=== PATIENT | female | born 1990 | race Caucasian/White ===

== ENCOUNTER 2024-04-05 15:30 | Day surgery (SDC) | payer BC, SELFPAY ==
[2024-04-05] VITALS (10 sets, daily range): BP systolic 100–131; BP diastolic 57–89; BMI 25.9
[2024-04-05 11:23] LABS: Urine Albumin Negative (Neg - Trace); Urine Bilirubin Negative (Negative); Urine Character Clear (Clear); Urine Color Yellow; Urine Glucose Negative (Negative); Urine Ketone Negative (Negative); Urine Leukocyte Negative (Negative); Urine Nitrite Negative (Negative); Urine Occult Blood Trace (Negative); Urine Urobilinogen Negative (Neg - 1+)
[2024-04-05 11:24] LABS: % Basophils 0.6 % (0-2); % Eosinophils 1.5 % (0-6); % Immature Granulocytes 0.3 % (0-0.5); % Monocytes 4.8 % (1.7-9.3); % Neutrophils 82.8 % (42.2-75.2); Absolute Basophils 0.1 10^3/uL (0-0.2); Absolute Eosinophils 0.2 10^3/uL (0-0.7); Absolute Immature Granulocytes 0.1 10^3/uL (0-0.05); Absolute Lymphocytes 1.6 10^3/uL (1.2-3.4); Absolute Monocytes 0.8 10^3/uL (0.1-0.6); Absolute Neutrophils 13.4 10^3/uL (1.4-6.5); Hematocrit 41.3 % (37.0-47.0); Hemoglobin 14.5 g/dL (12.0-16.0); Mean Corp Hgb Conc. 35.1 g/dL (33.0-37.0); Mean Corpuscular Hgb 27.3 pg (27.0-31.0); Mean Corpuscular Volume 77.8 fL (81.0-99.0); Mean Platelet Volume 10.4 fL (7.4-10.4); Nucleated Red Blood Cells % 0 %; Platelet Count 347 10^3/uL (130-400); Red Blood Cell Count 5.31 10^6/uL (4.20-5.40); Red Cell Dist. Width 12.9 % (11.5-14.5); White Blood Cell Count 16.2 10^3/uL (4.8-10.8)
[2024-04-05] MEDS: TORADOL 15 MG IV (11:29)
[2024-04-05] MEDS: NSS 1000 IV (11:29)
--- NOTE | 2024-04-05 11:29 | ED.GENMED ---
History of Present Illness
General
Chief Complaint: Abdominal Pain
Source: patient
Time Seen by Provider: 04/05/24 11:01
History of Present Illness
History of Present Illness:
34yoF with a history of anxiety and migraines presenting for evaluation of abdominal pain. Patient reports LUQ pain that woke her up from sleep around 6am this morning. Pain is described as a dull stabbing pain. Patient took Tums, Prilosec, and
Pepto-bismol without any relief. Her pain began to migrate to the LLQ and lower back. Pain is associated with nausea but she denies vomiting. She states she was pacing in the waiting room because she was unable to get in a comfortable position. No
prior history of similar pains. She is otherwise asymptomatic and denies any fevers, diarrhea, constipation, dysuria, vaginal bleeding, vaginal discharge, chest pain, shortness of breath. No previous abdominal surgeries. LMP was 2-3 weeks ago.
Phy Exam
General Physical Exam
General Presentation: well appearing and no apparent distress
General age: appears stated age
General Skin: warm and dry
General Habitus: normal
General Mental: alert
ENT Exam
ENT Exam: normocephalic
Cardiovascular Exam
Cardiovascular Exam: regular rate/rhythm and no murmur
Pulmonary Exam
Pulmonary Exam: lungs clear, no respiratory distress, no rales, no crackles, no rhonchi and no wheezing
Gastrointestinal Exam
Gastrointestinal Exam: soft, non distended and tender (Minimal tenderness in LUQ. No guarding or rebound. No CVA tenderness. )
[place] Coma Scale
Eye Opening: Spontaneous
Verbal Response: Oriented
Motor Response: Obeys Commands
GCS Total Score: 15
Skin Exam
Skin Exam: normal color and warm/dry
Psychiatric Exam
Psychiatric Exam: normal mood/affect
Course
Orders/Labs/Results
Orders:
Orders
04/05/24 11:01
Test Result ONCE
04/05/24 11:13
Complete Blood Count/With Diff Urgent
Comprehensive Metabolic Panel Urgent
HCG, Serum Qualitative Screen Urgent
Lipase Urgent
Urinalysis Reflex To Culture Urgent
Date Specimen was Collected: 04/05/24
Time Specimen was Collected: 11:07
Urine Microscopic Reflex Cult Urgent
04/05/24 11:21
CT Abd/pelvis W Iv Cont Urgent
Comment:
Reason For Exam: L sided abd pain
0.9% Sodium Chloride 1000 ml [Nss] 1,000 ml IV BOLUS
Ketorolac [Toradol] 15 mg IV NOW STA
04/05/24 12:48
Piperacillin/Tazo 3.375 Gram [Zosyn] 3.375 gram in 50 ml IV ONCE
04/05/24 13:25
HYDROmorphone [Dilaudid] 0.25 mg IV PACU-Q5MPRN PRN
HYDROmorphone [Dilaudid] 0.5 mg IV PACU-Q5MPRN PRN
Ondansetron Injectable [Zofran] 4 mg IV PACU-ONCEPRN PRN
Prochlorperazine [Compazine] 5 mg IV PACU-ONCEPRN PRN
Notify MD As Directed
Notify physician if: for SDS patients with known or suspected sleep obstructive sleep apnea, monitor in the
PACU.
Notify MD for any apneic/desaturation episodes
O2 Therapy [RESP] Urgent
Titrate/Wean O2 to maintain O2 sat greater than (%): 92
Special Instructions: -Provide supplemental oxygen to achieve O2 sat of 92% or greater.
-After 15 min, may wean O2 and discontinue if patient is able to maintain O2 sat of 92%
or greater during recovery period.
If patient is a discharge home, without oxygen therapy, notify anestheiologist if
unable to maintain O2 SAT of 92% or greater on room air for MD clearance.
04/05/24 13:30
Normosol (Mult Electrolytes) [Normosol-R/Plasmalyte-A] 1,000 ml IV PER PROTOCOL
04/05/24 14:20
Fentanyl Citrate/Pf [Sublimaze] 100 mcg .ROUTE .STK-MED ONE
Midazolam HCl [Versed] 2 mg .ROUTE .STK-MED ONE
Abnormal Lab Results
04/05/24
11:13
WBC 16.2 H 10^3/uL
(4.8-10.8)
MCV 77.8 L fL
(81.0-99.0)
Abs Immat Gran (auto) 0.1 H 10^3/uL
(0-0.05)
Absolute Neuts (auto) 13.4 H 10^3/uL
(1.4-6.5)
Absolute Monos (auto) 0.8 H 10^3/uL
(0.1-0.6)
Neutrophils % 82.8 H %
(42.2-75.2)
Lymphocytes % 10.0 L %
(20.5-51.1)
Glucose 109 H mg/dl
(70-99)
Calcium 10.6 H mg/dl
(8.4-10.2)
Albumin 5.3 H g/dl
(3.5-5.0)
Ur Occult Blood Reflex Trace A
(Negative)
Urine RBC 3-6 A /HPF
(0-2)
Urine Bacteria (Reflex) Few A
(Negative)
04/05/24 11:13
04/05/24 11:13
Vital Signs
Initial and Last Documented VS:
Initial Vital Signs
Temp Pulse Resp BP Pulse Ox
97.9 F 66 16 131/89 99
04/05/24 10:20 04/05/24 10:20 04/05/24 10:20 04/05/24 10:20 04/05/24 10:20
Last Documented Vital Signs
Temp Pulse Resp BP Pulse Ox
97.9 F 68 18 103/81 99
04/05/24 10:20 04/05/24 13:37 04/05/24 13:37 04/05/24 13:37 04/05/24 13:37
MDM/Problems Addressed
Differential Diagnosis Includes:
34yoF here with LUQ pain that woke her up from sleep this morning. Radiates to LLQ and L lower back. +Nausea. She is afebrile and hemodynamically stable. She is well appearing in no distress. No signs of peritonitis on abdominal exam. Differential
diagnosis includes but is not limited to: kidney stone, gastritis, PUD, diverticulitis, colitis, nonspecific abdominal pain
Initial ED plan: Check abdominal labs, HCG, UA, and CT abdomen. IV Toradol and fluid bolus for symptoms.
*Critical Care Note
Total Time (30-74mins, 75-104mins- exclusive of procedures): Not Applicable
Update Note
Update Note:
Labs show a leukocytosis with a WBC of 16.2. Remainder of labs unremarkable. CT abdomen shows acute uncomplicated appendicitis. IV Zosyn ordered and case discussed with general surgery. Plan for OR today. She was admitted for further management.
ED Attending Note
-
Portions of this chart may have been created with voice recognition software.� Occasional wrong word or��sound alike� substitutions may have occurred due to the inherent limitations of voice recognition software.
Discharge Plan
Departure
Patient Disposition: Admit
Date of Disposition: 04/05/24
Time of Disposition: 12:44
Presentation/result/management discussed w/ accepting /DO: Dr. Elizabeth
Discharge Problem:
Acute appendicitis
Prescriptions:
No Action
escitalopram oxalate 20 MG tablet
20 mg PO HS
sumatriptan succinate 50 mg Tablet
50 mg PO DAILYPRN PRN (Reason: migraine)
fexofenadine [Lora] 180 mg Tablet
180 mg PO DAILYPRN PRN (Reason: allergies)
ibuprofen 200 mg Tablet
600 mg PO Q6HPRN PRN (Reason: mild pain/fever)
fluticasone propionate [Flonase] 50 mcg/actuation [place],Suspension
1 spray INTRANASAL DAILYPRN PRN (Reason: allergies)
Naphcon-A 0.025-0.3 % Drops
1 drp BOTH EYES Q6HPRN PRN (Reason: allergies)
Referrals:
Maritza Camacho MD [Family Provider] -
Interventions
Interventions:
*Risk Screen - Suicide Last Done: 04/05/24 11:04
*General Assessment Last Done: 04/05/24 11:04
*Neglect/Abuse Screening Last Done: 04/05/24 11:04
*ED COVID-19 Vaccine History Last Done: 04/05/24 11:04
JT-Ojnfzx-Rzobehomwj Assessment Last Done: 04/05/24 11:05
Discharge Date and Time
Print Language: PALAUAN
[2024-04-05 11:39] LABS: ALT (SGPT) 20 U/L (0-35); AST (SGOT) 24 U/L (14-36); Albumin 5.3 g/dl (3.5-5.0); Alkaline Phosphatase 46 U/L (38-126); Blood Urea Nitrogen 11 mg/dl (7-17); Calcium 10.6 mg/dl (8.4-10.2); Carbon Dioxide 25 mmol/L (22-30); Chloride 103 mmol/L (98-107); Estimated Creatinine Clearance 112 ml/min; Glucose 109 mg/dl (70-99); Lipase 170 U/L (23-300); Potassium 4.1 mmol/L (3.5-5.1); Sodium 141 mmol/L (135-145); Urine White Cell 0-2 /HPF (0-5); eGFR > 60.00
[2024-04-05 11:40] LABS: Urine Bacteria Few (Negative)
[2024-04-05 11:44] LABS: HCG, Serum Qualitative Screen Negative
--- NOTE | 2024-04-05 14:54 | HPS.HSE ---
Family Physician
-
Family Physician: Maritza Camacho MD
Chief Complaint
-
Abdominal pain
History of Present Illness
Patient is a 34-year-old female who came to the ER with less than a day of abdominal pain that started in the left side and has migrated over to the right side. Also bit of nausea but no vomiting. No fevers chills. No diarrhea. This is new for
her. In the ER vital signs are normal. WBC elevated at 16.2. Electrolytes unremarkable. CT of the abdomen and pelvis was performed which the images and report are available for review. This reveals findings consistent with nonperforated
appendicitis. There is no free air. There is no abscess. I was asked to see the patient due to this concern.
Medical History
Past Medical History
Past Medical History: Reports Other (Anxiety; migraines)
Past Surgical History: Reports None
Social History
Tobacco: Non-smoker
Alcohol: None
Living: With Family
Family History
Family History: Other (colon cancer)
Allergies / Home Medications
Allergies reflects when Allergies were last updated in [employer].
Home Medications with original date entered in [employer]
Allergy/Medication List:
Medications include escitalopram, fexofenadine, Flonase, ibuprofen, Naphcon-A, sumatriptan
No known drug allergies
Review of Systems
-
A 12 point ROS was completed and negative except as noted: Yes
Abdomen/GI: Reports Abdominal Pain and Nausea
Physical Exam
Vital Signs
Vital Signs
Temp Pulse Resp BP Pulse Ox
97.9 F 80 18 104/81 99
04/05/24 10:20 04/05/24 14:44 04/05/24 14:44 04/05/24 14:44 04/05/24 14:44
Physical Exam
General: Well Developed
HEENT: NormoCephalic
Respiratory: Clear
Cardiac: Regular Rhythm
GI: Tender (Right lower quadrant)
Neuro: AO x 3
Laboratory Results
-
04/05/24 11:13
04/05/24 11:13
Laboratory Results
Total Bilirubin 1.0 mg/dl (0.2-1.3) 04/05/24 11:13
AST 24 U/L (14-36) 04/05/24 11:13
ALT 20 U/L (0-35) 04/05/24 11:13
Alkaline Phosphatase 46 U/L (38-126) 04/05/24 11:13
Lipase 170 U/L (23-300) 04/05/24 11:13
Data Reviewed
-
CT Scan: Image Personally Visualized and interpreted and Discussed with Patient
Impression/Plan
-
IMPRESSION:
34-year-old female with acute appendicitis.
PLAN:
Recommended laparoscopic appendectomy. Risk benefits discussed. Risks described include but not limited to bleeding, infection, ureteral injury, bowel or solid of any injury, hernia formation, conversion open, staple line dehiscence, and
anesthetic risk. The patient understood agreed to proceed. Anticipate observing the patient overnight afterwards and likely sending her home in the morning. Antibiotics in the meantime.
--- NOTE | 2024-04-05 17:04 | W.IMMPOSTOP ---
Surgical Immed Post Op Note
-
Primary Surgeon: Mazin Elizabeth MD
Assisting Surgeon: none
Pre-op Diagnosis: acute appendicitis
Post-op Diagnosis: same
Procedure Performed: laparoscopic appendectomy
Anesthesia Type: general plus local
Specimen / Cultures: appendix
Estimated Blood Loss: 10 cc
Complications: no immediate
Operative Findings: inflamed nonperforated appendix
Will continue Zosyn and discharge in am.
[2024-04-05] MEDS: NORMOSOL-R/PLASMALYTE-A 1000 IV (18:19)
--- NOTE | 2024-04-05 18:41 | PTCARENOTE ---
Patient received from PACU in stretcher, moved to bed; Patient with four laparoscopic sites open to air with glue; Patient awake and alert to self, place, and time; Patient denies N/V at this time; States pain is mild but tolerable; Bed in lowest
position, wheels locked; Call rhodes within reach; Spouse at bedside; Assessment ongoing
[2024-04-05] MEDS: TYLENOL 650 MG PO (19:46)
[2024-04-05] MEDS: IMITREX 50 MG PO (21:59)
[2024-04-05] MEDS: LEXAPRO 20 MG PO (21:59)
[2024-04-05] MEDS: ZOSYN 50 IV (22:00)
[2024-04-06] MEDS: TYLENOL 650 MG PO ×3 (00:06→07:58)
[2024-04-06] MEDS: TORADOL 10 MG IV ×2 (00:06→06:07)
[2024-04-06 03:00] VITALS: BP 96/59
[2024-04-06] MEDS: ZOSYN 50 IV (03:01)
[2024-04-06] MEDS: IMITREX 50 MG PO (03:01)
[2024-04-06 05:32] VITALS: BMI 26.1
[2024-04-06] MEDS: NORMOSOL-R/PLASMALYTE-A 1000 IV (06:12)
[2024-04-06 07:40] LABS: Blood Urea Nitrogen 8 mg/dl (7-17); Carbon Dioxide 19 mmol/L (22-30); Chloride 105 mmol/L (98-107); Estimated Creatinine Clearance 112 ml/min; Glucose 136 mg/dl (70-99); Potassium 4.4 mmol/L (3.5-5.1); Sodium 140 mmol/L (135-145); eGFR > 60.00
[2024-04-06 08:00] VITALS: BP 110/64
--- NOTE | 2024-04-06 09:06 | W.PN.CRS1 ---
Today's Communication / Plan
-
discharge
Assessment/Plan
-
POD#1 appendectomy
-Vitals normal
-On IV antibiotics
-Tolerating a diet
-Okay for d/c. All discharge instructions discussed with patient including medications, activity levels, and follow up. Discussed with patient.
Subjective Data
Procedure
04/05- appendectomy
Subjective Data
Date of Service: April 06, 2024
Patient states she feels well today. She denies nausea or vomiting. Her pain is a 1/10. She has no complaints.
Objective Data
-
Vital Signs
Temp Pulse Resp BP Pulse Ox
98.1 F 87 16 110/64 96
04/06/24 08:00 04/06/24 08:00 04/06/24 08:00 04/06/24 08:00 04/06/24 08:00
Intake & Output
04/05/24 04/06/24 04/07/24
06:59 06:59 06:59
Intake Total 589 / 589
Balance 589 / 589
Intake:
Oral fluids 489 / 489
IV fluids (Total) 100 / 100
Norm 100 / 100
Other:
Number of approximated SMALL 2
amounts of urine
Number of approximated MODERATE 1
amounts of urine
Lab Results
04/05/24 11:13
04/06/24 05:01
Physical Exam
-
General: No Acute Distress and AOx3
Abdomen: Soft, Non Distended and Non Tender
Skin: Warm and Dry
Incision: Clear, Dry, Intact
--- NOTE | 2024-04-06 09:11 | W.DS.TRANS ---
DC Summary - [employer]
-
Discharge Instructions:
Discharge Diagnosis/Procedures appendicitis
Diet Regular
Activity No strenuous activity
Additional Activity No lifting over 10lbs (gallon of milk)
Driving Restrictions No driving for 1 week
Bathing Restrictions OK to Shower
Wound Care Allow glue to naturally fall off. Do not pick at
incisions.
Instructions: Appendectomy, Laparoscopic Surgery (DC)
Stand-Alone Forms:
Changes to Home Medications: No
Discharge Medications:
DC Medications w/original date entered in [employer]
escitalopram oxalate 20 mg tablet 20 mg PO HS Neurological Condition 07/25/20
fexofenadine 180 mg tablet 180 mg PO DAILYPRN PRN allergies 04/05/24
fluticasone propionate 50 mcg/actuation nasal spray,suspension 1 spray intranasal DAILYPRN PRN allergies 04/05/24
ibuprofen 200 mg tablet 600 mg PO Q6HPRN PRN mild pain/fever 04/05/24
naphazoline 0.025 %-pheniramine 0.3 % eye drops (Naphcon-A) 1 drp BOTH EYES Q6HPRN PRN allergies 04/05/24
sumatriptan succinate 50 mg tablet 50 mg PO DAILYPRN PRN migraine 04/05/24
Home Medication Changes
Pending Results: Yes
Additional Pending Results:
OR pathology
[2024-04-06] MEDS: AFLURIA (36 mos+) 2024-2025 FORMULA 0.5 ML IM (09:32)
== END 2024-04-06 10:03 | disposition home or self-care (01) ==
LOC: PACU 15:30
PROVIDERS: Emergency Medicine; ATTENDING PHYSICIAN Surgery; EMERGENCY PHYSICIAN Emergency Medicine; FAMILY PHYSICIAN Emergency Medicine
PROC: 0DTJ4ZZ Resection of Appendix, Percutaneous Endoscopic Approach (ICD-10-PCS; 2024-04-05)
DX: K35.80 Unspecified acute appendicitis (principal)
CPT/HCPCS: 44970; 88304; 74177; 80048; 80053; 81003; 81015; 83690; 84703; 85025; 90686; 96361; 96374; 99285; C1776; G0008; Q9967

== ENCOUNTER → 2024-11-06 10:01 | Outpatient (REF) | payer BC, SELFPAY | LOC: WDC 10:01 | PROVIDERS: ATTENDING PHYSICIAN Emergency Medicine | DX: N63.23 Unspecified lump in the left breast, lower outer quadrant (principal); N64.4 Mastodynia | CPT/HCPCS: 76642; 77062; 77066 ==